=== PATIENT | male | born 1985 | race Hispanic/Latino ===

== ENCOUNTER 2022-08-08 18:41 | Emergency (ER) | payer BC, SELFPAY ==
--- OUTSIDE RECORDS SUMMARY | 2022-08-08 18:44 | XMS REPORT | Continuity of Care Document ---
:1985 Author Organization [facility] t Address [address] [place] [id number] Care Team Providers Name Role Phone Pcp, Patient Does Not Have A Primary Care Physician [id number] Yordy Garcia MD Attending Clinician YORDY GARCIA Attending Clinician Unavailable Provider, [facility] Attending Clinician Unavailable Marlon Rodriguez Attending Clinician MARLON ECHOLS Attending Clinician Unavailable Doctor Unassigned, [place] Attending Clinician Unavailable Problems Condition Condition Condition Status Onset Resolution Last Treating Co mments Source Name Details Category Date Date Treatment Clinician Date Right Right Disease Active Univers thyroid thyroid 03-18 ity of nodule nodule 00:00: [place] 00 [facility] Dyslipidem Dyslipidem Disease Active U nivers ia ia 03-18 ity of 00:00: [place] 00 [facility] Type 2 Type 2 Disease Active Univers diabetes diabetes 03-18 ity of mellitus mellitus 00:00: [place] without without 00 Medical complicati complicati Br anch on, on, unspecifie 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 insulin insulin use status use status Allergies, Adverse Reactions, Alerts Allergy Allergy Status Severity Reaction(s) Onset Inactive Treating Comm ents Source Name Type Date Date Clinician NO KNOWN Drug Active Univers ALLERGIE Class ity of S [facility] [place] Social History Social Habit Start Date Stop Date Quantity Comments Source History of Smokes tobacco University of tobacco use daily [facility] [place] Exposure to 2022-06-15 2022-06-25 Not sure [facility] SARS-CoV-2 00:00:00 11:50:00 [facility] (event) Branch Alcohol intake 2020-05-29 2020-05-29 0 /d University 00:00:00 00:00:00 [facility] [place] Sex Ass[birth year] At [birth year] Universit y of 00:00:00 00:00:00 [facility] [place] Smoking Status Start Date Stop Date Source Smokes tobacco daily 2020-05-29 00:00:00 [facility] ity [facility] Medications Ordered Filled Start Stop Current Ordering Indication Dosage Frequency Signature Comments Components Source Medication Medication Date Date Medication? Clinician (SIG) Name Name NaCl 0.9% No 1000mL at 999 Uni vers (NS) bolus 18 04-18 mL/hr, ity of infusion 16:15: 17:36 1,000 mL, Donato as 1,000 mL 00 :00 IV Medical Infusion, Branch ONCE, 1 dose, On Fri06/25/22 at 1115, STAT olopatadine Yes [id number] 1[drp] Place 1 Univers (PATANOL) 3- [id number] Drop in ity o f 0.1 % 00:00: left eye 2 [place] ophthalmic 00 (two) Medical solution times [place] daily. olopatadine Yes [id number] 1[drp] Place 1 Univers (PATANOL) 3- [id number] Drop in ity o f 0.1 % 00:00: left eye 2 [place] ophthalmic 00 (two) Medical solution times [place] daily. atorvastati Yes 20mg Take 1 Univ ers n 20 mg 1-12 tablet by ity of tablet 00:00: mouth at [place] [address] bedtime. Medical Branch losartan 50 Yes 50mg Take 1 Univ ers mg tablet 1-12 tablet by ity o f 00:00: mouth 00 daily. Medical Branch atorvastati Yes 20mg Take 1 Univ ers n 20 mg 1-12 tablet by ity of tablet 00:00: mouth at [place] [address] bedtime. Medical Branch losartan 50 Yes 50mg Take 1 Univ ers mg tablet 1-12 tablet by ity o f 00:00: mouth [place] 00 daily. Medical Branch atorvastati Yes 20mg Take 1 Univ ers n 20 mg 1-12 tablet by ity of tablet 00:00: mouth at [place] 00 bedtime. Medical Branch losartan 50 Yes 50mg Take 1 Univ ers mg tablet 1-12 tablet by ity o f 00:00: mouth [place] 00 daily. Medical Branch atorvastati Yes 20mg Take 1 Univ ers n 20 mg 1-12 tablet by ity of tablet 00:00: mouth at [place] 00 bedtime. Medical Branch losartan 50 Yes 50mg Take 1 Univ ers mg tablet 1-12 tablet by ity o f 00:00: mouth [place] 00 daily. Medical Branch canaglifloz Yes [id number] 300mg Take 1 Univers in -09 tablet by ity of (INVOKANA) 00:00: mouth [place] 300 mg 00 daily. Medical tablet Branch sitaGLIPtin Yes [id number] 100mg Take 1 Univers (JANUVIA) 1-09 tablet by ity o f 100 mg 00:00: mouth [place] tablet 00 daily. Medical Branch metformin Yes [id number] 1000mg Take 2 Univers ER 500 mg 1-09 tablets by ity of 24 hr 00:00: mouth 2 [place] tablet 00 (two) Medical times Branch daily. Blood-Gluco Yes [id number] Use as Univers se Meter 03-18 directed ity of (BLOOD 00:00: [place] GLUCOSE 00 Medical MONITORING) Branch Kit blood sugar Yes [id number] Check Univers diagnostic 03-18 three ity of (BLOOD 00:00: times [place] GLUCOSE 00 daily Medical TEST) strip Branch lancets 33 Yes [id number] Check U nivers gauge Misc 03-18 three ity of 00:00: times [place] 00 daily Medical Branch canaglifloz Yes [id number] 300mg Take 1 Univers in -09 tablet by ity of (INVOKANA) 00:00: mouth [place] 300 mg 00 daily. Medical tablet Branch sitaGLIPtin Yes [id number] 100mg Take 1 Univers (JANUVIA) 1-09 tablet by ity o f 100 mg 00:00: mouth [place] tablet 00 daily. Medical Branch metformin Yes [id number] 1000mg Take 2 Univers ER 500 mg 1-09 tablets by ity of 24 hr 00:00: mouth 2 [place] tablet 00 (two) Medical times Branch daily. Blood-Gluco Yes [id number] Use as Univers se Meter 03-18 directed ity of (BLOOD 00:00: [place] GLUCOSE 00 Medical MONITORING) Branch Kit blood sugar Yes [id number] Check Univers diagnostic 03-18 three ity of (BLOOD 00:00: times [place] GLUCOSE 00 daily Medical TEST) strip Branch lancets 33 Yes [id number] Check U nivers gauge Misc 03-18 three ity of 00:00: times [place] 00 daily Medical Branch canaglifloz Yes [id number] 300mg Take 1 Univers in 03-18 tablet by ity of (INVOKANA) 00:00: mouth [place] 300 mg 00 daily. Medical tablet Branch sitaGLIPtin Yes [id number] 100mg Take 1 Univers (JANUVIA) 09 tablet by ity o f 100 mg 00:00: mouth [place] tablet 00 daily. Medical Branch metformin Yes [id number] 1000mg Take 2 Univers ER 500 mg 1-09 tablets by ity of 24 hr 00:00: mouth 2 [place] tablet 00 (two) Medical times Branch daily. Blood-Gluco Yes [id number] Use as Univers se Meter 03-18 directed ity of (BLOOD 00:00: [place] GLUCOSE 00 Medical MONITORING) Branch Kit blood sugar Yes [id number] Check Univers diagnostic 03-18 three ity of (BLOOD 00:00: times [place] GLUCOSE 00 daily Medical TEST) strip Branch lancets 33 Yes [id number] Check U nivers gauge Misc 03-18 three ity of 00:00: times [place] 00 daily Medical Branch canaglifloz Yes [id number] 300mg Take 1 Univers in 09 tablet by ity of (INVOKANA) 00:00: mouth [place] 300 mg 00 daily. Medical tablet Branch sitaGLIPtin Yes [id number] 100mg Take 1 Univers (JANUVIA) 1-09 tablet by ity o f 100 mg 00:00: mouth [place] tablet 00 daily. Medical Branch metformin Yes [id number] 1000mg Take 2 Univers ER 500 mg 1-09 tablets by ity of 24 hr 00:00: mouth 2 [place] tablet 00 (two) Medical times Branch daily. Blood-Gluco Yes [id number] Use as Univers se Meter 03-18 directed ity of (BLOOD 00:00: [place] GLUCOSE 00 Medical MONITORING) Branch Kit blood sugar Yes [id number] Check Univers diagnostic 03-18 three ity of (BLOOD 00:00: times [place] GLUCOSE 00 daily Medical TEST) strip Branch lancets 33 2016-0 Yes [id number] Check U nivers gauge Misc 03-18 three ity of 00:00: times [place] 00 daily Medical Branch Vital Signs Vital Name Observation Time Observation Value Comments Source Systolic blood 2022-06-25 15:59:00 152 mm[Hg] Univer sity of pressure [facility] [place] Diastolic blood 2022-06-25 15:59:00 108 mm[Hg] Unive rsity of [facility] Heart rate 2022-06-25 15:59:00 105 /min Universi ty [facility] Body temperature 2022-06-25 15:59:00 37.11 Adamaris [facility] ersity [facility] Respiratory rate 2022-06-25 15:59:00 22 /min [facility] ersity [facility] Body height 2022-06-25 15:59:00 170.2 cm Universi ty of [facility] [place] Body weight 2022-06-25 15:59:00 71.668 kg Universi ty [facility] BMI 2022-06-25 15:59:00 24.75 kg/m2 Universi ty [facility] Oxygen saturation in 2022-06-25 15:59:00 100 /min [facility] Arterial blood by [facility] Pulse oximetry Branch Systolic blood 2020-05-29 14:57:00 121 mm[Hg] Univer sity of pressure [facility] [place] Diastolic blood 2020-05-29 14:57:00 86 mm[Hg] Unive rsity of pressure [facility] [place] Heart rate 2020-05-29 14:57:00 95 /min Universi ty of [facility] [place] Body temperature 2020-05-29 14:57:00 37.22 Adamaris [facility] ersity [facility] Respiratory rate 2020-05-29 14:57:00 17 /min Univ ersity of [facility] [place] Body height 2020-05-29 14:57:00 170.2 cm Universi ty of [facility] [place] Body weight 2020-05-29 14:57:00 74.844 kg [facility] BMI 2020-05-29 14:57:00 25.84 kg/m2 [facility] Oxygen saturation in 2020-05-29 14:57:00 98 /min [facility] Arterial blood by [facility] Pulse oximetry Branch Procedures Procedure Date / Time Performed Performing Clinician Sourc e BASIC METABOLIC PANEL 2022-06-25 16:26:00 Yordy Garcia [facility] (NA, K, CL, CO2, Medical Branch GLUCOSE, BUN, CREATININE, CA) CBC WITH DIFF 2022-06-25 16:26:00 Yordy Garcia Milmay o f [facility] CONSENT/REFUSAL FOR 2022-06-25 15:54:57 Doctor Unassigned, No [facility] AND Name [facility] TREATMENT NOTICE OF PRIVACY 2022-06-25 15:54:40 Doctor Unassigned, No Univ [facility] PRACTICES Name [facility] Encounters Start End Encounter Admission Attending Care Care Encounter Source Date/Time Date/Time Type Type Clinicians Facility Department ID 2022-06-25 2022-06-25 [id number] Univers 11:00:00 12:37:00 Yordy JONES [id number] i jose [facility] [id number] [facility] [id number] [facility] 084 Branch 2022-06-25 2022-06-25 Emergency [facility] [id number] Univers 11:00:00 12:37:00 YORDY ham [facility] 2020-05-29 2020-05-29 Urgent Provider, [facility] [id number] Univers 09:50:18 10:21:34 Marlon Montanez [id number] jitendra [facility] [id number] [facility] [id number] [facility] 0[facility] Branch [address] 2020-05-29 2020-05-29 Outpatient Eunice ECHOLS [facility] [id number] Univers 10:00:00 10:00:00 MARLON ham [facility] 2020-05-29 2020-05-29 Letter Doctor VIOLET [id number] Univers 00:00:00 00:00:00 (Out) Unassigned, JOVANNA [id number] ity of [place] [facility] [id number] Donato as [phone] [place] [address] Branch 2020-05-29 2020-05-29 Letter Doctor VIOLET [id number] Univers 00:00:00 00:00:00 (Out) Unassigned, JOVANNA [id number] ity of [place] [facility] [id number] Donato as [id number] [place] [address] Branch Results This patient has no known results.
[2022-08-08] MEDS ORDERED: MECLIZINE HCL 12.5 MG TAB ONE (19:44)
[2022-08-08 19:46] LABS: Absolute Lymphocytes (CBC) 2.9 K/uL (0.7-4.9); Hematocrit 42.5 % (39.6-49.0); Lymphocytes % 31.4 % (15.3-44.8); MCV 89.3 fL (80-100); RBC Red Blood Cell Count 4.76 M/uL (4.33-5.43)
[2022-08-08] MEDS ORDERED: NA CHLORIDE 0.9% 1,000 ML ONE ×2 (20:00→22:13)
[2022-08-08 20:17] LABS: Magnesium 1.7 mg/dL (1.6-2.4); Potassium 4.6 mEq/L (3.5-5.1); Troponin High Sensitivity 5.2 pg/mL (<58.9)
--- NOTE | 2022-08-08 20:44 | RAD REPORT ---
EXAM DESCRIPTION: CT - Head Brain Wo Cont - 08/08/2022 8:06 pm CLINICAL HISTORY: DIZZINESS COMPARISON: No comparisons TECHNIQUE: Noncontrast head CT images ad were obtained without IV contrast. Multiplanar reformats we re generated and reviewed. All CT scans are performed using dose optimization technique as appropriate and may include automated exposure control or mA/KV adjustment according to patient size. FINDINGS: No intracranial hemorrhage, mass, or edema. Midline structures are unremarkable. Normal ventricular caliber for age. Begum-white matter differentiation is preserved, without evidence of acute infarct. No abnormal extra- axial fluid collections. Mastoid air cells and visualized portions of the paranasal sinuses are clear. No acute bony findings. IMPRESSION: No evidence of an acute intracranial process.
--- NOTE | 2022-08-08 20:45 | RAD REPORT ---
EXAM DESCRIPTION: Shell Single View08/08/2022 8:04 pm CLINICAL HISTORY: dizziness COMPARISON: No comparisons TECHNIQUE: Portable AP view of the chest. FINDINGS: The lungs show no focal consolidation. Linear right basilar faint opacity, could represent pleural plaque or a small focal airspace opacity. No pneumothorax or effusion. The cardiomediastinal contours are unremarkable. IMPRESSION: Small focal airspace opacity versus pleural plaque at the right lower lung.
[2022-08-08] MEDS ORDERED: INSULIN -REGULAR HUMAN 50 UNIT/0.5 ML ML ONE (21:01)
--- NOTE | 2022-08-08 23:07 | ER ---
Nurse's Notes [facility] Name: Víctor Villavicencio Age: 37 yrs Sex: Male : 1985 Arrival Date: 08/08/2022 Time: 18:41 Bed 7 Private MD: Diagnosis: Dizziness and giddiness;Diabetes mellitus due to underlying condition with hyperglycemia Presentation: 08/08 19:16 Chief complaint: Patient states: dizzy X3 days. i feel like im going to faint. i iw started taking a new BP medication and i thought it was the meds so i stopped them Friday but the dizziness kept going on. i went to the clinic yesterday and the doctor told me i was dehydrated and needed to come to the ER for fluids. Coronavirus screen: Client denies travel out of the [place] in the last 14 days. At this time, the client does not indicate any symptoms associated with coronavirus-19. Ebola Screen: No symptoms or risks identified at this time. Initial Sepsis Screen: Does the patient meet any 2 criteria? No. Patient's initial sepsis screen is negative. Does the patient have a suspected source of infection? No. Patient's initial sepsis screen is negative. Risk Assessment: Do you want to hurt yourself or someone else? Patient reports no desire to harm self or others. Onset of symptoms was August 05, 2022. 19:16 Method Of Arrival: Ambulatory iw 19:16 Acuity: GERA 3 iw Triage Assessment: 19:20 General: Appears in no apparent distress. comfortable, Behavior is calm, cooperative. iw Pain: Denies pain. EENT: No deficits noted. No signs and/or symptoms were reported regarding the EENT system. Neuro: No deficits noted. Avery Agitation-Sedation Scale (RASS): 0 - Alert and Calm Level of Consciousness is awake, alert, obeys commands, Oriented to person, place, time, situation. Cardiovascular: No deficits noted. Denies chest pain, shortness of breath. Respiratory: No deficits noted. Airway is patent Respiratory effort is even, unlabored, Respiratory pattern is regular, symmetrical. GI: No deficits noted. No signs and/or symptoms were reported involving the gastrointestinal system. : No deficits noted. No signs and/or symptoms were reported regarding the genitourinary system. Derm: No deficits noted. No signs and/or symptoms reported regarding the dermatologic system. Skin is intact, is healthy with good turgor, Skin is dry, Skin is normal, Skin temperature is warm. Musculoskeletal: No deficits noted. Circulation, motion, and sensation intact. Range of motion: intact in all extremities. Historical: - Allergies: 19:20 No Known Allergies; iw - Home Meds: 19:20 metformin 500 mg Oral Tb24 1 tab 2 times per day [Active]; Insulin: Novolin 70/30 Sub-Q iw 30 CC [Active]; Lisinopril Oral [Active]; - PMHx: 19:20 Depression; Diabetes - NIDDM; Hyperlipidemia; HTN; iw - PSHx: 19:20 None; iw - Immunization history:: Adult Immunizations up to date, Client reports having NOT received the Covid vaccine. - Social history:: Smoking status: Patient reports the use of cigarette tobacco products, smokes one-half pack cigarettes per day, Patient/guardian denies using alcohol, street drugs. Screenin:47 [facility] ED Fall Risk Assessment (Adult) History of falling in the last 3 months, rv including since admission No falls in past 3 months (0 pts). Abuse screen: Denies threats or abuse. Denies injuries from another. Nutritional screening: No deficits noted. Tuberculosis screening: No symptoms or risk factors identified. Assessment: 22:16 Reassessment: Patient appears in no apparent distress at this time. Patient and/or jb4 family updated on plan of care and expected duration. Pain level reassessed. Patient is alert, oriented x 3, equal unlabored respirations, skin warm/dry/pink. Vital Signs: 19:16 BP 117 / 81; Pulse 110; Resp 17 S; Temp 98.7(O); Pulse Ox 100% on R/A; Weight 70.76 kg iw (R); Height 5 ft. 7 in. (R); 19:30 BP 134 / 97 Supine; Pulse 108; Resp 19; Pulse Ox 100% ; jb4 19:35 BP 122 / 90 Sitting; Pulse 104; Resp 19; Pulse Ox 100% on R/A; jb4 19:48 BP 104 / 70; Pulse 105; Resp 19; Pulse Ox 100% on R/A; jb4 21:13 BP 153 / 103; Pulse 112; Resp 15; Pulse Ox 100% on R/A; jb4 22:13 BP 114 / 77; Pulse 106; Resp 14; Pulse Ox 100% on R/A; jb4 19:16 Body Mass Index 24.43 (70.76 kg, 170.18 cm) iw ED Course: 18:44 Patient arrived in ED. ts1 18:46 Austin Dyson PA is PHCP. cp 18:46 Vivek Carrasquillo DO is Attending Physician. cp 19:20 Triage completed. iw 19:20 Arm band placed on right wrist. iw 19:34 Tin Dickinson, CATRACHITA is Primary Nurse. rv 19:45 Basic Metabolic Panel Sent. rv 19:45 CBC with Diff Sent. rv 19:45 Magnesium Sent. rv 19:45 Troponin HS Sent. rv 20:00 No provider procedures requiring assistance completed. rv 20:05 XRAY Chest (1 view) In Process Unspecified. EDMS 20:07 CT Head Brain wo Cont In Process Unspecified. EDMS 23:48 Patient has correct armband on for positive identification. Placed in gown. Bed in low rv position. Call light in reach. Side rails up X 1. Client placed on continuous cardiac and pulse oximetry monitoring. NIBP monitoring applied. 23:48 Inserted saline lock: 20 gauge in right antecubital area, using aseptic technique. rv Blood collected. IV discontinued, intact, bleeding controlled, No redness/swelling at site. Pressure dressing applied. Administered Medications: 19:45 Drug: Meclizine PO 25 mg Route: PO; rv 19:54 Drug: NS 0.9% IV 1000 ml Route: IV; Rate: 1 bolus; Site: right antecubital; rv 20:55 Drug: Insulin Regular Human IVP 10 units {Co-Signature: price (Anand London RN).} Route: rv IVP; Site: right hand; 22:13 Drug: NS 0.9% IV 1000 ml Route: IV; Rate: 1 bolus; Site: right hand; jb4 Medication: 23:48 VIS not applicable for this client. rv Outcome: 23:07 Discharge ordered by . cp 23:48 Discharged to home ambulatory. rv 23:48 Condition: good 23:48 Condition: good 23:48 Discharge instructions given to patient, Instructed on discharge instructions, follow up and referral plans. medication usage, Demonstrated understanding of instructions, follow-up care, medications, Prescriptions given X 2. 23:49 Patient left the ED. rv Signatures: Dispatcher [employer] EDHattie Washington RN RN iw Austin Dyson PA PA cp Bryson, James, RN RN jb4 Tin Dickinson RN RN rv Zaria Crespo PAS PAS ts1 Anand London RN jb4 Corrections: (The following items were deleted from the chart) 19:22 19:20 PMHx: Angina pectoris; [facility] 19:24 19:16 Chief complaint: Patient states: dizzy X3 days. i feel like im going to faint. i iw started taking a new BP medication and i stopped them Friday but the dizziness kept going on. i went to the clinic yesterday and the doctor told me i was dehydrated and needed to come to the ER for fluids. iw
--- NOTE | 2022-08-08 23:08 | EDPHYS ---
Physician Documentation [facility] Name: Víctor Villavicencio Age: 37 yrs Sex: Male : 1985 Arrival Date: 08/08/2022 Time: 18:41 Bed 7 Private MD: ED Physician Vivek Carrasquillo HPI: 08/08 19:00 This 37 yrs old Male presents to ER via Ambulatory with complaints of cp Dizziness. 19:00 The patient presents with dizziness, lightheadedness, feeling off balance. cp 19:00 Onset: The symptoms/episode began/occurred 3 day(s) ago. Context: possibly due to blood cp pressure medications. 19:00 Associated signs and symptoms: Pertinent negatives: abdominal pain, chest pain, focal cp weakness, fever. Severity of symptoms: in the emergency department the symptoms are unchanged despite home interventions. Patient's baseline: Neuro: alert and fully oriented, Motor: no deficits, Ambulation: walks without assistance, Speech: normal. Historical: - Allergies: 19:20 No Known Allergies; iw - Home Meds: 19:20 metformin 500 mg Oral Tb24 1 tab 2 times per day [Active]; Insulin: Novolin 70/30 Sub-Q iw 30 CC [Active]; Lisinopril Oral [Active]; - PMHx: 19:20 Depression; Diabetes - NIDDM; Hyperlipidemia; HTN; iw - PSHx: 19:20 None; iw - Immunization history:: Adult Immunizations up to date, Client reports having NOT received the Covid vaccine. - Social history:: Smoking status: Patient reports the use of cigarette tobacco products, smokes one-half pack cigarettes per day, Patient/guardian denies using alcohol, street drugs. ROS: 19:05 Constitutional: Negative for body aches, chills, fever, poor PO intake. cp 19:05 Eyes: Negative for injury, pain, redness, and discharge. cp 19:05 ENT: Negative for drainage from ear(s), ear pain, sore throat, difficulty swallowing, difficulty handling secretions. 19:05 Cardiovascular: Negative for chest pain, edema, palpitations. 19:05 Respiratory: Negative for cough, shortness of breath, wheezing. 19:05 Abdomen/GI: Negative for abdominal pain, vomiting, diarrhea, constipation. 19:05 Neuro: Positive for dizziness, weakness, Negative for altered mental status, headache, numbness, seizure activity, syncope, focal weakness. 19:05 All other systems are negative. Exam: 19:10 Constitutional: The patient appears in no acute distress, alert, awake, cp non-diaphoretic, non-toxic, well developed, well nourished. 19:10 Head/Face: Normocephalic, atraumatic. cp 19:10 Eyes: Periorbital structures: appear normal, Pupils: equal, round, and reactive to light and accomodation, Extraocular movements: intact throughout, Conjunctiva: normal, no exudate, no injection, Sclera: no appreciated abnormality, Lids and lashes: appear normal, bilaterally. 19:10 ENT: External ear(s): are unremarkable, Ear canal(s): are normal, clear, TM's: bulging, is not appreciated, bilaterally, dullness, bilaterally, erythema, is not appreciated, bilaterally, Nose: is normal, Mouth: Lips: moist, Oral mucosa: pink and intact, moist, Posterior pharynx: is normal, airway is patent, no erythema, no exudate. 19:10 Neck: ROM/movement: is normal, is supple, without pain, no range of motions limitations, no meningismus, no nuchal rigidity. 19:10 Chest/axilla: Inspection: normal. 19:10 Cardiovascular: Rate: tachycardic, Rhythm: regular, Edema: is not appreciated, JVD: is not appreciated. 19:10 Respiratory: the patient does not display signs of respiratory distress, Respirations: normal, no use of accessory muscles, no retractions, labored breathing, is not present, Breath sounds: are clear throughout, no decreased breath sounds, no stridor, no wheezing. 19:10 Abdomen/GI: Inspection: abdomen appears normal, Palpation: abdomen is soft and non-tender, in all quadrants. 19:10 Back: pain, is absent, ROM is normal. 19:10 Skin: cellulitis, is not appreciated, no rash present. 19:10 Neuro: Orientation: to person, place \T\ time. Mentation: is normal, Cerebellar function: is grossly normal, Motor: moves all fours, strength is normal, Sensation: is normal, Gait: is steady. 19:48 ECG was reviewed by the Attending Physician. cp Vital Signs: 19:16 BP 117 / 81; Pulse 110; Resp 17 S; Temp 98.7(O); Pulse Ox 100% on R/A; Weight 70.76 kg iw (R); Height 5 ft. 7 in. (R); 19:30 BP 134 / 97 Supine; Pulse 108; Resp 19; Pulse Ox 100% ; jb4 19:35 BP 122 / 90 Sitting; Pulse 104; Resp 19; Pulse Ox 100% on R/A; jb4 19:48 BP 104 / 70; Pulse 105; Resp 19; Pulse Ox 100% on R/A; jb4 21:13 BP 153 / 103; Pulse 112; Resp 15; Pulse Ox 100% on R/A; jb4 22:13 BP 114 / 77; Pulse 106; Resp 14; Pulse Ox 100% on R/A; jb4 19:16 Body Mass Index 24.43 (70.76 kg, 170.18 cm) iw MDM: 19:29 Patient medically screened. 23:06 Data reviewed: vital signs, nurses notes, lab test result(s), EKG, radiologic studies, cp CT scan, plain films. 23:06 Differential diagnosis: cardiac arrhythmia, CVA, generalized weakness, GI bleed, cp hypovolemia, idiopathic dizziness, TIA, DKA. Consideration of Admission/Observation Escalation of care including admission/observation considered. I considered the following discharge prescriptions or medication management in the emergency department Medications were administered in the Emergency Department. See MAR. Test considered but Not performed: CT: CT head/neck angio. Care significantly affected by the following chronic conditions: Diabetes, Hypertension. Counseling: I had a detailed discussion with the patient and/or guardian regarding: the historical points, exam findings, and any diagnostic results supporting the discharge/admit diagnosis, lab results, radiology results, to return to the emergency department if symptoms worsen or persist or if there are any questions or concerns that arise at home. Response to treatment: the patient's symptoms have markedly improved after treatment. ED course: VSS. Symptoms improved. Blood glucose improved. Will discharge to home for continued monitoring. 08/08 18:59 Order name: Basic Metabolic Panel; Complete Time: 20:22 cp 08/08 20:22 Interpretation: Normal except: NA 135; GLUC 399; BUN 23; GFR 86. cp 08/08 18:59 Order name: CBC with Diff; Complete Time: 20:22 cp 08/08 18:59 Order name: Magnesium; Complete Time: 20:22 cp 08/08 18:59 Order name: Troponin HS; Complete Time: 20:22 cp 08/08 21:58 Order name: Glucose, Ancillary Testing; Complete Time: 23:06 EDMS 08/08 18:59 Order name: XRAY Chest (1 view); Complete Time: 21:18 cp 08/08 21:18 Interpretation: Report reviewed. cp 08/08 18:59 Order name: CT Head Brain wo Cont; Complete Time: 21:18 cp 08/08 21:18 Interpretation: Report reviewed. cp 08/08 18:59 Order name: EKG; Complete Time: 18:59 cp 08/08 18:59 Order name: Cardiac monitoring; Complete Time: 19:45 cp 08/08 18:59 Order name: EKG - Nurse/Tech; Complete Time: 19:45 cp 08/08 18:59 Order name: IV Saline Lock; Complete Time: 19:45 cp 08/08 18:59 Order name: Labs collected and sent; Complete Time: 19:45 cp 08/08 18:59 Order name: O2 Per Protocol; Complete Time: 19:45 cp 08/08 18:59 Order name: O2 Sat Monitoring; Complete Time: 19:45 cp 08/08 18:59 Order name: Orthostatics; Complete Time: 19:47 cp EC:48 Rate is 104 beats/min. Rhythm is regular. HI interval is normal. QRS interval is cp normal. T waves are Inverted in leads aVL, aVR. Interpreted by me. Reviewed by me. Administered Medications: 19:45 Drug: Meclizine PO 25 mg Route: PO; rv 19:54 Drug: NS 0.9% IV 1000 ml Route: IV; Rate: 1 bolus; Site: right antecubital; rv 20:55 Drug: Insulin Regular Human IVP 10 units {Co-Signature: jb4 (Anand London RN).} Route: rv IVP; Site: right hand; 22:13 Drug: NS 0.9% IV 1000 ml Route: IV; Rate: 1 bolus; Site: right hand; jb4 Disposition Summary: 08/08/22 23:07 Discharge Ordered Location: Home cp Problem: new cp Symptoms: have improved cp Condition: Stable cp Diagnosis - Dizziness and giddiness cp - Diabetes mellitus due to underlying condition with hyperglycemia cp Followup: cp - With: Private Physician - When: 2 - 3 days - Reason: Recheck today's complaints Discharge Instructions: - Discharge Summary Sheet cp - Dizziness cp - Hyperglycemia cp - Blood Glucose Monitoring, Adult cp - Diabetes Mellitus and Nutrition, Adult cp Forms: - Medication Reconciliation Form cp - Thank You Letter cp - Antibiotic Education cp - Prescription Opioid Use cp - Work release form rv Prescriptions: - Meclizine 25 mg Oral Tablet - take 1 tablet by ORAL route every 8 hours As needed; 30 tablet; Refills: 0, cp Product Selection Permitted - Zofran 4 mg Oral Tablet - take 1 tablet by ORAL route every 12 hours As needed; 20 tablet; Refills: 0, cp Product Selection Permitted Signatures: Dispatcher [employer] Hattie Avilez RN RN Austin Dyson PA PA cp Bryson, James RN RN jb4 Tin Dickinson RN RN rv Bryson, James RN jb4 Corrections: (The following items were deleted from the chart) 19:22 19:20 PMHx: Angina pectoris; [facility] 08/09 22:07 06 19:00 Context: possibly due to medications, cp cp
[2022-08-09 00:31] VITALS: TEMP 98.7; O2SAT 100
[2022-08-09 00:50] VITALS: BP 114/77
--- NOTE | 2022-08-12 10:21 | EKG ---
Test Date: 2022-08-08 Test Time: 19:42:50 Counting Machine Operator: RV MEASUREMENT RESULTS: Intervals: Rate: 104 HI: 124 QRSD: 86 QT: 336 QTc: 441 [place]: P: 67 HI: 124 QRS: 44 T: 81 INTERPRETIVE STATEMENTS: Sinus tachycardia ST elevation, consider inferior injury or acute infarct ACUTE [place] Abnormal ECG Compared to ECG 09/17/2015 16:45:09 ST (T wave) deviation now present Myocardial infarct finding now present T-wave abnormality no longer present Electronically Signed On 08-12-22 10:14:30 CDT by Jef Guevara
== END 2022-08-08 23:49 | disposition home or self-care (01) ==
LOC: ER 18:41
DX: E11.65 Type 2 diabetes mellitus with hyperglycemia (principal); Z79.4 Long term (current) use of insulin
CPT/HCPCS: 36415; 70450; 71045; 80048; 82947; 83735; 84484; 85025; 93005; 96374; 99284; J1815; J7030; J8597

== ENCOUNTER 2023-01-05 19:39 | Emergency (ER) | payer SELFPAY ==
--- OUTSIDE RECORDS SUMMARY | 2023-01-05 19:42 | XMS REPORT | Continuity of Care Document ---
:1985 Author Organization [facility] t Address [address] [place] [address] [place] [id number] Care Team Providers Name Role Phone Pcp, Patient Does Not Have A Primary Care Physician +[id number] Yordy Garcia MD Attending Clinician YORDY GARCIA Attending Clinician Unavailable Provider, [facility] Attending Clinician Unavailable Marlon Rodriguez Attending Clinician AMRLON ECHOLS Attending Clinician Unavailable Doctor Unassigned, [place] Attending Clinician Unavailable Problems Condition Condition Condition Status Onset Resolution Last Treating Co mments Source Name Details Category Date Date Treatment Clinician Date Right Right Disease Active Univers thyroid thyroid 03-18 ity of nodule nodule 00:00: [address] Dyslipidem Dyslipidem Disease Active U nivers ia ia 03-18 ity of 00:00: [address] Type 2 Type 2 Disease Active Univers diabetes diabetes 03-18 ity of mellitus mellitus 00:00: [place] without without 00 Medical complicati complicati Br anch on, on, unspecifie 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 status use status Allergies, Adverse Reactions, Alerts Allergy Allergy Status Severity Reaction(s) Onset Inactive Treating Comm ents Source Name Type Date Date Clinician NO KNOWN Drug Active Univers ALLERGIE Class ity of S [facility] Social History Social Habit Start Date Stop Date Quantity Comments Source History of Smokes tobacco University of tobacco use daily [facility] Exposure to 2022-06-15 2022-06-25 Not sure University SARS-CoV-2 00:00:00 11:50:00 [place] [facility] (event) Branch Alcohol intake 2020-05-29 2020-05-29 0 /d University of 00:00:00 00:00:00 [facility] Sex Ass[birth year] Universit y of 00:00:00 00:00:00 [facility] Smoking Status Start Date Stop Date Source Smokes tobacco daily 2020-05-29 00:00:00 [facility] ity [facility] Medications Ordered Filled Start Stop Current Ordering Indication Dosage Frequency Signature Comments Components Source Medication Medication Date Date Medication? Clinician (SIG) Name Name NaCl 0.9% 2022- No 1000mL at 999 Uni vers (NS) bolus 4-18 04-18 mL/hr, ity of infusion 16:15: 17:36 1,000 mL, Donato as 1,000 mL 00 :00 IV Medical Infusion, Branch ONCE, 1 dose, On Fri06/25/22 at 1115, STAT olopatadine Yes [id number] 1[drp] Place 1 Univers (PATANOL) 3 [id number] Drop in ity o f 0.1 % 00:00: left eye 2 [place] ophthalmic 00 (two) Medical solution times [place] daily. olopatadine Yes [id number] 1[drp] Place 1 Univers (PATANOL) 3- [id number] Drop in ity o f 0.1 % 00:00: left eye 2 [place] ophthalmic 00 (two) Medical solution times [place] daily. atorvastati Yes 20mg Take 1 Univ ers n 20 mg 1-12 tablet by ity of tablet 00:00: mouth at [place] [address] bedtime. Medical Branch losartan 50 Yes 50mg Take 1 Univ ers mg tablet 1-12 tablet by ity o f 00:00: mouth [place] daily. Medical Branch atorvastati Yes 20mg Take 1 Univ ers n 20 mg 1-12 tablet by ity of tablet 00:00: mouth at [place] [address] bedtime. Medical Branch losartan 50 Yes 50mg Take 1 Univ ers mg tablet 1-12 tablet by ity o f 00:00: mouth [place] daily. Medical Branch atorvastati Yes 20mg Take [...] [place] 00 daily. Medical Branch canaglifloz Yes [id number] 300mg Take 1 Univers in -09 tablet by ity of (INVOKANA) 00:00: mouth [place] 300 mg 00 daily. Medical tablet Branch sitaGLIPtin Yes [id number] 100mg Take 1 Univers (JANUVIA) 1-09 tablet by ity o f 100 mg 00:00: mouth [place] tablet 00 daily. Medical Branch metformin Yes [id number] 1000mg Take 2 Univers ER 500 mg 1-09 tablets by ity of 24 hr 00:00: mouth 2 [place] tablet 00 (two) Medical times Branch daily. Blood-Gluco Yes [id number] Use as Univers se Meter 03-18 directed ity of (BLOOD 00:00: [place] GLUCOSE 00 Medical MONITORING) Branch Kit blood sugar Yes [id number] Check Univers diagnostic 03-18 three ity of (BLOOD 00:00: times [place] GLUCOSE 00 daily Medical TEST) strip Branch lancets 33 Yes [id number] Check U nivers gauge Misc 03-18 three ity of 00:00: times [place] 00 daily Medical Branch canaglifloz Yes [id number] 300mg Take 1 Univers in -09 tablet by ity of (INVOKANA) 00:00: mouth [place] 300 mg 00 daily. Medical tablet Branch sitaGLIPtin Yes [id number] 100mg Take 1 Univers (JANUVIA) 1-09 tablet by ity o f 100 mg 00:00: mouth [place] tablet 00 daily. Medical Branch metformin Yes [id number] 1000mg Take 2 Univers ER 500 mg 1-09 tablets by ity of 24 hr 00:00: mouth 2 [place] tablet 00 (two) Medical times Branch daily. Blood-Gluco Yes [id number] Use as Univers se Meter 03-18 directed ity of (BLOOD 00:00: [place] GLUCOSE 00 Medical MONITORING) Branch Kit blood sugar Yes [id number] Check Univers diagnostic 03-18 three ity of (BLOOD 00:00: times [place] GLUCOSE 00 daily Medical TEST) strip Branch lancets 33 Yes [id number] Check U nivers gauge Misc 03-18 three ity of 00:00: times [place] 00 daily Medical Branch canaglifloz Yes [id number] 300mg Take 1 Univers in -09 tablet by ity of (INVOKANA) 00:00: mouth [place] 300 mg 00 daily. Medical tablet Branch sitaGLIPtin Yes [id number] 100mg Take 1 Univers (JANUVIA) 09 tablet by ity o f 100 mg 00:00: mouth [place] tablet 00 daily. Medical Branch metformin Yes [id number] 1000mg Take 2 Univers ER 500 mg 1-09 tablets by ity of 24 hr 00:00: mouth 2 [place] tablet 00 (two) Medical times Branch daily. Blood-Gluco Yes [id number] Use as Univers se Meter 03-18 directed ity of (BLOOD 00:00: [place] GLUCOSE 00 Medical MONITORING) Branch Kit blood sugar Yes [id number] Check Univers diagnostic 03-18 three ity of (BLOOD 00:00: times [place] GLUCOSE 00 daily Medical TEST) strip Branch lancets 33 Yes [id number] Check U nivers gauge Misc 03-18 three ity of 00:00: times [place] 00 daily Medical Branch canaglifloz Yes [id number] 300mg Take 1 Univers in -09 tablet by ity of (INVOKANA) 00:00: mouth [place] 300 mg 00 daily. Medical tablet Branch sitaGLIPtin Yes [id number] 100mg Take 1 Univers (JANUVIA) 1-09 tablet by ity o f 100 mg 00:00: mouth [place] tablet 00 daily. Medical Branch metformin Yes [id number] 1000mg Take 2 Univers ER 500 mg 1-09 tablets by ity of 24 hr 00:00: mouth 2 [place] tablet 00 (two) Medical times Branch daily. Blood-Gluco Yes [id number] Use as Univers se Meter 03-18 directed ity of (BLOOD 00:00: [place] GLUCOSE 00 Medical MONITORING) Branch Kit blood sugar 2016- Yes [id number] Check Univers diagnostic 03-18 three ity of (BLOOD 00:00: times [place] GLUCOSE 00 daily Medical TEST) strip Branch lancets 33 Yes [id number] Check U nivers gauge Misc 03-18 three ity of 00:00: times [place] 00 daily Medical Branch Vital Signs Vital Name Observation Time Observation Value Comments Source Systolic blood 2022-06-25 15:59:00 152 mm[Hg] Univer sity of pressure [facility] Diastolic blood 2022-06-25 15:59:00 108 mm[Hg] Unive rsity of pressure [facility] Heart rate 2022-06-25 15:59:00 105 /min Universi ty of [facility] Body temperature 2022-06-25 15:59:00 37.11 Adamaris Univ ersity of [facility] Respiratory rate 2022-06-25 15:59:00 22 /min Univ ersity of [facility] Body height 2022-06-25 15:59:00 170.2 cm Universi ty of [facility] Body weight 2022-06-25 15:59:00 71.668 kg Universi ty of [facility] Branch BMI 2022-06-25 15:59:00 24.75 kg/m2 Universi ty of [facility] Oxygen saturation in 2022-06-25 15:59:00 100 /min University Arterial blood by [facility] Pulse oximetry Branch Systolic blood 2020-05-29 14:57:00 121 mm[Hg] Univer sity of pressure [facility] Diastolic blood 2020-05-29 14:57:00 86 mm[Hg] Unive rsity of pressure [facility] Heart rate 2020-05-29 14:57:00 95 /min Universi ty of [facility] Body temperature 2020-05-29 14:57:00 37.22 [place] Univ ersity of [facility] Respiratory rate 2020-05-29 14:57:00 17 /min Univ ersity of [facility] Body height 2020-05-29 14:57:00 170.2 cm Universi ty of [facility] Body weight 2020-05-29 14:57:00 74.844 kg Universi ty of [facility] BMI 2020-05-29 14:57:00 25.84 kg/m2 Universi ty of [facility] Oxygen saturation in 2020-05-29 14:57:00 98 /min University Arterial blood by [facility] Pulse oximetry [place] Procedures Procedure Date / Time Performed Performing Clinician Jamir fischer BASIC METABOLIC PANEL 2022-06-25 16:26:00 Yordy Garcia [facility] (NA, K, CL, CO2, Medical Branch GLUCOSE, BUN, CREATININE, CA) CBC WITH DIFF 2022-06-25 16:26:00 Yordy Garcia [place] o f [facility] CONSENT/REFUSAL FOR 2022-06-25 15:54:57 Doctor Unassigned, No [facility] AND Name [facility] TREATMENT NOTICE OF PRIVACY 2022-06-25 15:54:40 Doctor Unassigned, No Univ [facility] PRACTICES Name [facility] Encounters Start End Encounter Admission Attending Care Care Encounter Source Date/Time Date/Time Type Type Clinicians Facility Department ID 2022-06-25 2022-06-25 [id number] Univers 11:00:00 12:37:00 Yordy JONES [id number] i ty [facility] [id number] [facility] [id number] [facility] 084 Branch 2022-06-25 2022-06-25 Emergency [facility] [id number] Univers 11:00:00 12:37:00 YORDY ham [facility] 2020-05-29 2020-05-29 Urgent Provider, [facility] [id number] Univers 09:50:18 10:21:34 Marlon Montanez [id number] katiey [facility] [id number] [facility] [id number] [place] [address] Office [address] 2020-05-29 2020-05-29 Outpatient R ONESIMO [facility] [id number] Univers 10:00:00 10:00:00 MARLON ham [facility] 2020-05-29 2020-05-29 Letter Doctor LAZO [id number] Univers 00:00:00 00:00:00 (Out) Unassigned, JOVANNA [id number] ity of [place] [facility] [id number] Donato as [id number] [place] [address] Branch 2020-05-29 2020-05-29 Letter Doctor VIOLET [id number] Univers 00:00:00 00:00:00 (Out) Unassigned, JOVANNA [id number] ity of [place] [facility] [id number] Donato as [id number] [place] [address] Branch Results This patient has no known results.
[2023-01-05 20:17] LABS: Absolute Lymphocytes (CBC) 2.9 K/uL (0.7-4.9); Hematocrit 38.7 % (39.6-49.0); Lymphocytes % 24.7 % (15.3-44.8); MPV 7.1 fL (7.6-11.3); Platelets 281 thou/uL (152-406); RBC Red Blood Cell Count 4.35 M/uL (4.33-5.43)
[2023-01-05] MEDS ORDERED: NA CHLORIDE 0.9% 1,000 ML ONE ×2 (20:25→21:36)
[2023-01-05 20:40] LABS: ALT/SGPT 23 U/L (16-61); AST/SGOT 13 U/L (15-37); Albumin 3.1 g/dL (3.4-5.0); Alkaline Phosphatase 159 U/L (45-117); BUN Blood Urea Nitrogen 34 mg/dL (7-18); Bicarbonate 30 mEq/L (21-32); Bilirubin Total 0.3 mg/dL (0.2-1.0); Glomerular Filtration Rate 69 ml/min (=/>90); Glucose Level 303 mg/dL (74-106); Potassium 4.2 mEq/L (3.5-5.1); Protein, Total 6.5 g/dL (6.4-8.2); Sodium Level 132 mEq/L (136-145); Troponin High Sensitivity 7.7 pg/mL (<58.9)
[2023-01-05 20:41] LABS: Bilirubin Direct < 0.1 mg/dL (0-0.2); Bilirubin Indirect, Calculated ND mg/dL (0.2-0.8)
[2023-01-05 21:27] LABS: Specific Gravity < 1.005 (1.005-1.030); Urine Bacteria None Seen /HPF (<20); Urine Bilirubin NEGATIVE (Negative); Urine Blood Trace (Negative); Urine Clarity Clear (Clear); Urine Color Colorless (Yellow); Urine Glucose 4+ (Negative); Urine Protein 1+ (Negative); Urine RBC None Seen /HPF (None Seen); Urine Urobilinogen Normal (Normal)
[2023-01-05] MEDS ORDERED: INSULIN REGULAR (HUMAN) 100 UNIT/ML ONE (21:36)
--- NOTE | 2023-01-05 22:00 | ER ---
Nurse's Notes [facility] Name: Víctor Villavicencio Age: 37 yrs Sex: Male : 1985 Arrival Date: 01/05/2023 Time: 19:39 Bed 20 Private MD: Diagnosis: Diabetes mellitus due to underlying condition with hyperglycemia Presentation: 01/05 19:43 Chief complaint: Patient states: jose been dehydrated for the last week. the last 3 days lg3 jose drank a gallon of water each day. this has happened before and i got an IV. im also diabetic so i know i need fluids. Coronavirus screen: Client denies travel out of the [place] in the last 14 days. At this time, the client does not indicate any symptoms associated with coronavirus-19. Ebola Screen: No symptoms or risks identified at this time. Initial Sepsis Screen: Does the patient meet any 2 criteria? No. Patient's initial sepsis screen is negative. Does the patient have a suspected source of infection? No. Patient's initial sepsis screen is negative. Risk Assessment: Do you want to hurt yourself or someone else?. Onset of symptoms is unknown. 19:43 Method Of Arrival: Ambulatory lg3 19:43 Acuity: GERA 3 lg3 Triage Assessment: 19:45 General: Appears in no apparent distress. comfortable, Behavior is calm, cooperative. lg3 Pain: Denies pain. EENT: No deficits noted. No signs and/or symptoms were reported regarding the EENT system. Neuro: No deficits noted. Avery Agitation-Sedation Scale (RASS): 0 - Alert and Calm Level of Consciousness is awake, alert, obeys commands, Oriented to person, place, time, situation. Cardiovascular: No deficits noted. Denies chest pain, shortness of breath, Capillary refill < 3 seconds Clubbing of nail beds is absent JVD is absent Patient's skin is warm and dry. Respiratory: No deficits noted. Airway is patent Respiratory effort is even, unlabored, Respiratory pattern is regular, symmetrical. GI: No deficits noted. No signs and/or symptoms were reported involving the gastrointestinal system. : No deficits noted. Reports urinary frequency. Derm: No deficits noted. No signs and/or symptoms reported regarding the dermatologic system. Skin is intact, is healthy with good turgor, Skin is dry, Skin is normal, Skin temperature is warm. Musculoskeletal: No deficits noted. No signs and/or symptoms reported regarding the musculoskeletal system. Circulation, motion, and sensation intact. Range of motion: intact in all extremities. Historical: - Allergies: 19:45 No Known Allergies; lg3 - Home Meds: 19:45 Farxiga 10 mg oral tablet [Active]; lg3 - PMHx: 19:45 Depression; Diabetes - NIDDM; HTN; Hyperlipidemia; lg3 - Immunization history:: Adult Immunizations up to date. - Social history:: Smoking status: Patient reports the use of cigarette tobacco products, smokes one-half pack cigarettes per day, Patient/guardian denies using alcohol, street drugs. Screenin:55 [facility] ED Fall Risk Assessment (Adult) History of falling in the last 3 months, me1 including since admission No falls in past 3 months (0 pts) Confusion or Disorientation No (0 pts) Intoxicated or Sedated No (0 pts) Impaired Gait No (0 pts) Mobility Assist Device Used No (0 pt) Altered Elimination No (0 pt) Score/Fall Risk Level 0 - 2 = Low Risk. Abuse screen: Denies threats or abuse. Nutritional screening: No deficits noted. Tuberculosis screening: No symptoms or risk factors identified. Assessment: 19:55 General: Appears comfortable, well developed, well nourished, Behavior is calm, me1 cooperative, appropriate for age, Reports jose been dehydrated for the last week. the last 3 days jose drank a gallon of water each day. this has happened before and i got an IV. im also diabetic so i know i need fluids. Neuro: Level of Consciousness is awake, alert, obeys commands, Oriented to person, place, time, situation, Appropriate for age. Cardiovascular: Capillary refill < 3 seconds Patient's skin is warm and dry. Respiratory: Airway is patent Respiratory effort is even, unlabored, Respiratory pattern is regular, symmetrical. Vital Signs: 19:43 BP 122 / 88; Pulse 109; Resp 17 S; Temp 97.31(TE); Pulse Ox 100% on R/A; Weight 72.57 lg3 kg (R); Height 5 ft. 7 in. (R); 20:00 BP 127 / 90; Pulse 102; Resp 18; Pulse Ox 99% on R/A; me1 21:30 BP 142 / 102; Pulse 106; Resp 17; Pulse Ox 100% ; me1 22:00 BP 166 / 98; Pulse 105; Resp 16; Pulse Ox 99% on R/A; me1 22:49 BP 147 / 96; Pulse 102; Resp 21; Pulse Ox 97% on R/A; me1 19:43 Body Mass Index 25.06 (72.57 kg, 170.18 cm) lg3 ED Course: 19:41 Patient arrived in ED. mr 19:42 Austin Dyson PA is PHCP. cp 19:42 Tunde Swift MD is Attending Physician. cp 19:45 Triage completed. lg3 19:45 Arm band placed on right wrist. lg3 19:52 Caryl Aguilar, CATRACHITA is Primary Nurse. me1 19:55 Patient has correct armband on for positive identification. Bed in low position. Call me1 light in reach. Provided Education on: POC. Verbalized understanding. . 19:55 No provider procedures requiring assistance completed. me1 20:10 Inserted saline lock: 20 gauge in right antecubital area, using aseptic technique. me1 20:11 Basic Metabolic Panel Sent. me1 20:11 CBC with Diff Sent. me1 20:11 LFT's Sent. me1 20:11 Magnesium Sent. me1 20:11 Troponin HS Sent. me1 21:25 Urinalysis W/Microscopic Sent. me1 22:00 IV discontinued, intact, bleeding controlled, No redness/swelling at site. Pressure me1 dressing applied. Administered Medications: 20:13 Drug: NS 0.9% IV 1000 ml IV at 1 bolus Per protocol; 1000 mL bolus Route: IV; Rate: 1 me1 bolus; Site: right antecubital; 21:24 Follow up: IV Status: Completed infusion me1 21:25 Drug: NS 0.9% IV 1000 ml IV at 1 bolus Per protocol; 1000 mL bolus Route: IV; Rate: 1 me1 bolus; Site: right antecubital; 22:48 Follow up: IV Status: Completed infusion; IV Intake: 1000ml me1 21:30 Drug: Insulin Regular Human Sub-Q 10 units Sub-Q once {Co-Signature: lg3 (Maria Pritchard me1 RN).} Route: Sub-Q; Site: right lower abdomen; 22:48 Follow up: Response: No adverse reaction me1 Medication: 19:55 VIS not applicable for this client. me1 Intake: 22:48 IV: 1000ml; Total: 1000ml. me1 Outcome: 21:59 Discharge ordered by MD. cp 22:00 Discharged to home ambulatory, me1 22:00 Condition: stable 22:00 Discharge instructions given to patient, Instructed on discharge instructions, follow up and referral plans. medication usage, Demonstrated understanding of instructions, follow-up care, medications, Prescriptions given X 1, 22:53 Patient left the ED. me1 Signatures: Renetta Corado, Reg Reg mr Austin Dyson, JOANNE PA Maria Horowitz, CATRACHITA RN lg3 Caryl Aguilar RN RN me1 Maria Pritchard RN lg3 Corrections: (The following items were deleted from the chart) 19:54 19:43 Chief complaint: Patient states: jose been dehydrated for the last week. the last me1 3 days jose drank a gallon of water each day. this has happened before and i got an IV. im also diabetic so i know i need fluids. lg3
--- NOTE | 2023-01-05 22:00 | EDPHYS ---
Physician Documentation [facility] Name: Víctor Villavicencio Age: 37 yrs Sex: Male : 1985 Arrival Date: 01/05/2023 Time: 19:39 Bed 20 Private MD: ED Physician Tunde Swift HPI: 01/05 20:00 This 37 yrs old Male presents to ER via Ambulatory with complaints of cp Dehydrated. 20:00 The patient or guardian reports polydipsia, polyuria. cp 20:00 Onset: The symptoms/episode began/occurred 1 week(s) ago. cp 20:00 Associated signs and symptoms: Pertinent negatives: diarrhea, vomiting, fever, chest cp pain, abdominal pain. Current symptoms: In the emergency department the patient's symptoms are unchanged from the initial presentation, despite home interventions. The patient has experienced similar episodes in the past, several times, today's symptoms are similar, to when the patient was apparently diagnosed with dehydration. Patient reports recently running out of prescribed diabetes medication, Farxiga. Historical: - Allergies: 19:45 No Known Allergies; lg3 - Home Meds: 19:45 Farxiga 10 mg oral tablet [Active]; lg3 - PMHx: 19:45 Depression; Diabetes - NIDDM; HTN; Hyperlipidemia; lg3 - Immunization history:: Adult Immunizations up to date. - Social history:: Smoking status: Patient reports the use of cigarette tobacco products, smokes one-half pack cigarettes per day, Patient/guardian denies using alcohol, street drugs. ROS: 20:05 Constitutional: Negative for body aches, chills, fever, poor PO intake, cp 20:05 Eyes: Negative for injury, pain, redness, and discharge, cp 20:05 ENT: Negative for drainage from ear(s), ear pain, sore throat, difficulty swallowing, difficulty handling secretions, 20:05 Cardiovascular: Negative for chest pain, edema, palpitations, 20:05 Respiratory: Negative for cough, shortness of breath, wheezing, 20:05 Abdomen/GI: Negative for abdominal pain, vomiting, diarrhea, constipation, 20:05 : Negative for hematuria, burning with urination, 20:05 Skin: Negative for cellulitis, rash, 20:05 Neuro: Negative for altered mental status, dizziness, headache, syncope, weakness, 20:05 Endocrine: Positive for polydipsia, polyuria, Negative for weight gain, weight loss, 20:05 All other systems are negative, Exam: 20:10 Constitutional: The patient appears in no acute distress, alert, awake, cp non-diaphoretic, non-toxic, well developed, well nourished, 20:10 Head/Face: Normocephalic, atraumatic. cp 20:10 Eyes: Periorbital structures: appear normal, Pupils: equal, round, and reactive to light and accomodation, Extraocular movements: intact throughout, Conjunctiva: normal, no exudate, no injection, Sclera: no appreciated abnormality, Lids and lashes: appear normal, bilaterally, 20:10 ENT: External ear(s): are unremarkable, Nose: is normal, Mouth: Lips: moist, Oral mucosa: pink and intact, moist, Posterior pharynx: is normal, airway is patent, no erythema, no exudate, 20:10 Neck: ROM/movement: is normal, is supple, without pain, no range of motions limitations, no meningismus, no nuchal rigidity, 20:10 Chest/axilla: Inspection: normal, 20:10 Cardiovascular: Rate: tachycardic, Rhythm: regular, Edema: is not appreciated, JVD: is not appreciated, 20:10 Respiratory: the patient does not display signs of respiratory distress, Respirations: normal, no use of accessory muscles, no retractions, labored breathing, is not present, Breath sounds: are clear throughout, no decreased breath sounds, no stridor, no wheezing, 20:10 Abdomen/GI: Inspection: abdomen appears normal, Bowel sounds: active, all quadrants, Palpation: abdomen is soft and non-tender, in all quadrants, 20:10 Skin: cellulitis, is not appreciated, no rash present. 20:10 Neuro: Orientation: to person, place \T\ time. Mentation: is normal, Motor: moves all fours, strength is normal, Sensation: is normal, Gait: is steady, 20:17 ECG was reviewed by the Attending Physician. cp Vital Signs: 19:43 BP 122 / 88; Pulse 109; Resp 17 S; Temp 97.31(TE); Pulse Ox 100% on R/A; Weight 72.57 lg3 kg (R); Height 5 ft. 7 in. (R); 20:00 BP 127 / 90; Pulse 102; Resp 18; Pulse Ox 99% on R/A; me1 21:30 BP 142 / 102; Pulse 106; Resp 17; Pulse Ox 100% ; me1 22:00 BP 166 / 98; Pulse 105; Resp 16; Pulse Ox 99% on R/A; me1 22:49 BP 147 / 96; Pulse 102; Resp 21; Pulse Ox 97% on R/A; me1 19:43 Body Mass Index 25.06 (72.57 kg, 170.18 cm) lg3 MDM: 19:53 Patient medically screened. 21:58 Data reviewed: vital signs, nurses notes, lab test result(s), EKG, and as a result, I will discharge patient. 21:58 I considered the following discharge prescriptions or medication management in the emergency department Medications were administered in the Emergency Department. See MAR. Care significantly affected by the following chronic conditions: Diabetes. Counseling: I had a detailed discussion with the patient and/or guardian regarding the historical points, exam findings, and any diagnostic results supporting the discharge/admit diagnosis, lab results, the need for outpatient follow up, for definitive care, a family practitioner, to return to the emergency department if symptoms worsen or persist or if there are any questions or concerns that arise at home. Response to treatment: the patient's symptoms have mildly improved after treatment, and as a result, I will discharge patient. 01/05 19:54 Order name: Basic Metabolic Panel; Complete Time: 21:00 01/05 21:00 Interpretation: Normal except: NA 132; GLUC 303; BUN 34; CRE 1.36; GFR 69; CA 8.4. 01/05 19:54 Order name: CBC with Diff; Complete Time: 20:39 01/05 20:39 Interpretation: Normal except: WBC 11.80; HGB 13.1; HCT 38.7; MPV 7.1. 01/05 19:54 Order name: LFT's; Complete Time: 21:00 01/05 21:00 Interpretation: Normal except: AST 13; ALK 159; ALB 3.1; A/G 0.9. 01/05 19:54 Order name: Magnesium; Complete Time: 21:00 01/05 19:54 Order name: Troponin HS; Complete Time: 21:00 01/05 19:55 Order name: Urinalysis W/Microscopic; Complete Time: 21:30 cp 01/05 21:31 Interpretation: Normal except: Urine SG < 1.005; UGLUC 4+; UBLD Trace; UPROT 1+. cp 01/05 20:13 Order name: Glucose, Ancillary Testing; Complete Time: 20:39 EDMS 01/05 20:39 Interpretation: Reviewed. cp 01/05 19:54 Order name: EKG; Complete Time: 19:55 cp 01/05 19:49 Order name: Accucheck; Complete Time: 22:32 me1 01/05 19:54 Order name: Cardiac monitoring; Complete Time: 20:21 cp 01/05 19:54 Order name: EKG - Nurse/Tech; Complete Time: 20:21 cp 01/05 19:54 Order name: IV Saline Lock; Complete Time: 20:11 cp 01/05 19:54 Order name: Labs collected and sent; Complete Time: 20:11 cp 01/05 19:54 Order name: O2 Per Protocol; Complete Time: 20:11 cp 01/05 19:54 Order name: O2 Sat Monitoring; Complete Time: 20:11 cp EC:17 Rate is 99 beats/min. Rhythm is regular. NH interval is normal. QRS interval is normal. cp QT interval is normal. T waves are Inverted in lead aVR. Interpreted by me. Reviewed by me. Administered Medications: 20:13 Drug: NS 0.9% IV 1000 ml IV at 1 bolus Per protocol; 1000 mL bolus Route: IV; Rate: 1 me1 bolus; Site: right antecubital; 21:24 Follow up: IV Status: Completed infusion ms1 21:25 Drug: NS 0.9% IV 1000 ml IV at 1 bolus Per protocol; 1000 mL bolus Route: IV; Rate: 1 me1 bolus; Site: right antecubital; 22:48 Follow up: IV Status: Completed infusion; IV Intake: 1000ml ms1 21:30 Drug: Insulin Regular Human Sub-Q 10 units Sub-Q once {Co-Signature: lg3 (Maria Pritchard me1 RN).} Route: Sub-Q; Site: right lower abdomen; 22:48 Follow up: Response: No adverse reaction ms1 Disposition: 01/06 02:41 Co-signature as Attending Physician, Tunde Swift MD I agree with the assessment sp4 and plan of care. I reviewed the patient's care provided by the Advanced Practice Provider and agree with the diagnosis and treatment plan. Disposition Summary: 01/05/23 21:59 Discharge Ordered Notes: Location: Home cp Problem: chronic cp Symptoms: have improved cp Condition: Stable cp Diagnosis - Diabetes mellitus due to underlying condition with hyperglycemia cp Followup: cp - With: Private Physician - When: 2 - 3 days - Reason: Recheck today's complaints Discharge Instructions: - Discharge Summary Sheet cp - Hyperglycemia cp - Daily Diabetes Mellitus Record cp - Blood Glucose Monitoring, Adult cp - Diabetes Mellitus and Nutrition, Adult cp Forms: - Medication Reconciliation Form cp - Thank You Letter cp - Antibiotic Education cp - Prescription Opioid Use cp - Patient Portal Instructions cp - Leadership Thank You Letter cp Prescriptions: - Farxiga 10 mg Oral tablet - take 1 tablet ORAL route daily; 30 tablet; Refills: 0, Product Selection cp Permitted Signatures: Dispatcher [employer] EDND Austin Dyson PA PA cp Maria Pritchard, RN RN lg3 Tunde Swift MD MD sp4 Caryl Aguilar RN RN me1 Maria Pritchard RN lg3
[2023-01-05 23:36] VITALS: BP 147/96; O2SAT 97
--- NOTE | 2023-01-07 07:53 | EKG ---
Test Date: 2023-01-05 Test Time: 20:12:30 Database Administration Manager: DOMENICO MEASUREMENT RESULTS: Intervals: Rate: 99 AR: 124 QRSD: 86 QT: 336 QTc: 431 [place]: P: 56 AR: 124 QRS: 32 T: 51 INTERPRETIVE STATEMENTS: Normal sinus rhythm Septal infarct, age undetermined Abnormal ECG Compared to ECG 11/14/2022 19:24:35 Myocardial infarct finding now present Sinus tachycardia no longer present T-wave abnormality no longer present Possible ischemia no longer present Electronically Signed On 01-07-23 07:51:04 CDT by Steve Chopra
== END 2023-01-05 22:53 | disposition home or self-care (01) ==
LOC: ER 19:39
DX: E11.65 Type 2 diabetes mellitus with hyperglycemia (principal)
CPT/HCPCS: 36415; 80048; 80076; 81001; 82947; 83735; 84484; 85025; 93005; 96360; 96361; 96372; 99284; J1815; J7030